=== PATIENT | female | born 2005 | race Hispanic/Latino ===

== ENCOUNTER 2024-08-21 21:14 | Emergency (ER) | payer SELFPAY ==
[~2024-08-21] VITALS: Ht 154.9 cm; Wt 68.0 kg
[2024-08-21] MEDS ORDERED: ONDANSETRON HCl 4 MG/2 ML SDV IV ONE (22:00)
[2024-08-21] MEDS ORDERED: SODIUM CHLORIDE 0.9% 1,000 ML IV ONE (22:00)
[2024-08-21 22:13] VITALS: BP 102/65
[2024-08-21 22:23] LABS: BASO% 0.5 % (0-3); IMMATURE GRANULOCYTES 0.3 % (0.0-5.0); LYMPH% 34.7 % (15-41); MEAN CELL VOLUME 83.7 fL CALC (80.0-100.0); MEAN CORPUSCULAR HGB 26.5 pG CALC (26.0-32.0); MEAN CORPUSCULAR HGB CONC 31.7 g/dL CAL (32.0-36.0); MONO% 5.5 % (2-13); NEUT# 4.28 thou/uL (2.00-7.15); RED BLOOD COUNT 4.79 mill/uL (4.20-5.60); RED CELL DISTRI WIDTH 14.4 % (11.5-15.5)
[2024-08-21 22:25] LABS: HEMATOCRIT 40.1 % (37.0-47.0); HEMOGLOBIN 12.7 g/dl (12.0-16.0)
[2024-08-21 22:28] VITALS: BP 110/62
[2024-08-21 22:30] VITALS: BP 101/58
[2024-08-21 22:40] LABS: ALBUMIN 3.9 g/dL (3.2-5.0); BILIRUBIN, TOTAL 0.3 mg/dL (0.02-1.3); C-REACTIVE PROTEIN 1.4 mg/dL (0-0.9); CREATININE 0.5 mg/dL (0.5-1.0); POTASSIUM 3.6 mmol/l (3.5-5.1); TOTAL PROTEIN 6.8 g/dL (6.3-8.2)
[2024-08-21 23:00] VITALS: BP 105/62
[2024-08-21 23:30] VITALS: BP 104/69
[2024-08-22 01:48] LABS: URINE BILIRUBIN - DIPSTICK Negative (NEGATIVE); URINE BLOOD DIPSTICK Large (NEGATIVE); URINE GLUCOSE - DIPSTICK Negative (NEGATIVE); URINE KETONE Negative (NEGATIVE); URINE NITRITE - DIPSTICK Negative (Negative); URINE PROTEIN - DIPSTICK 100 mg/dL (NEG-TRACE); URINE UROBILINOGEN - DIPSTICK 0.2 E.U./dL (0.2)
[2024-08-22 01:50] LABS: URINE COLOR Yellow; URINE LEUK ESTERASE Moderate (NEGATIVE)
[2024-08-22 02:04] LABS: URINE BACTERIA MODERATE hpf; URINE RBC 50-100 RBC/hpf (0-5); URINE SQUAMOUS EPITHELIAL CELL MANY EPI/hpf (0-FEW); URINE WBC 20-50 WBC/hpf (0-5)
[2024-08-22] MEDS ORDERED: MACRODANTIN100 MG PO (02:17)
[2024-08-22] MEDS ORDERED: NITROFURANTOIN 100 MG/CAP PO ONE (02:20)
[2024-08-22 02:26] VITALS: BP 104/69
[2024-08-24] MEDS ORDERED: BACTRIM DS1 TAB PO (16:20)
--- NOTE | 2024-08-24 16:42 | NUR ---
Seen in ED on 08/22 for UTI, discharged on nitrofurantoin 100 mg bid x 7 days. Had systemic symptoms. Unable to reach patient to notify of new prescription for Bactrim DS 1 tab bid x 7 days sent to patient's pharmacy.
== END 2024-08-22 02:26 | disposition home or self-care (01) | DRG 776 ==
LOC: ED 21:14
PROVIDERS: Family Medicine
DX: O86.20 Urinary tract infection following delivery, unspecified (principal); N39.0 Urinary tract infection, site not specified; B96.20 Unspecified Escherichia coli [E. coli] as the cause of diseases classified elsewhere; Z20.822 Contact with and (suspected) exposure to COVID-19
CPT/HCPCS: J2405